=== PATIENT | male | born 1960 | race Asian ===

== ENCOUNTER 2020-07-01 11:36 | Emergency (ER) | payer OTHER ==
[~2020-07-01] VITALS: Ht 165.1 cm; Wt 74.9 kg
[2020-07-01 13:45] VITALS: BP 138/93
== END 2020-07-01 14:17 | disposition home or self-care (01) ==
LOC: ED 12:23
DX: S16.1XXA Strain of muscle, fascia and tendon at neck level, initial encounter (principal); S00.83XA Contusion of other part of head, initial encounter; M50.20 Other cervical disc displacement, unspecified cervical region; M48.02 Spinal stenosis, cervical region; M47.812 Spondylosis without myelopathy or radiculopathy, cervical region; I10 Essential (primary) hypertension; V43.52XA Car driver injured in collision with other type car in traffic accident, initial encounter; Y93.89 Activity, other specified; Y92.488 Other paved roadways as the place of occurrence of the external cause; Y99.8 Other external cause status
CPT/HCPCS: 70450; 72125; 99285

== ENCOUNTER 2020-07-06 13:33 | Emergency (ER) | payer OTHER ==
[~2020-07-06] VITALS: Ht 165.1 cm; Wt 74.5 kg
[2020-07-06 13:35] VITALS: BP 147/78
== END 2020-07-06 14:10 | disposition home or self-care (01) ==
LOC: ED 13:45
DX: S16.1XXA Strain of muscle, fascia and tendon at neck level, initial encounter (principal); R51 Headache; R20.0 Anesthesia of skin; I10 Essential (primary) hypertension; V89.2XXA Person injured in unspecified motor-vehicle accident, traffic, initial encounter; Y93.89 Activity, other specified; Y92.488 Other paved roadways as the place of occurrence of the external cause; Y99.8 Other external cause status
CPT/HCPCS: 99281